=== PATIENT | male | born 1990 | race Caucasian/White ===

== ENCOUNTER 2022-04-03 21:07 | Emergency (ER) | payer OTHER ==
[~2022-04-03] VITALS: Ht 175.3 cm; Wt 125.0 kg
[~2022-04-03 21:07] MED LIST: IBUP-2492 PO
[2022-04-03 22:19] VITALS: BP 135/57
== END 2022-04-03 23:19 | disposition home or self-care (01) ==
LOC: EMS 21:21
DX: T75.4XXA Electrocution, initial encounter (principal); F17.210 Nicotine dependence, cigarettes, uncomplicated; F12.90 Cannabis use, unspecified, uncomplicated; Z90.49 Acquired absence of other specified parts of digestive tract; X58.XXXA Exposure to other specified factors, initial encounter; Y93.89 Activity, other specified; Y92.89 Other specified places as the place of occurrence of the external cause; Y99.8 Other external cause status
CPT/HCPCS: 99291; Z7502

== ENCOUNTER 2023-06-26 17:05 | Emergency (ER) | payer OTHER ==
[~2023-06-26] VITALS: Ht 175.3 cm; Wt 104.5 kg
[~2023-06-26 17:05] MED LIST changes: +OLAN5TAB30 PO
[2023-06-26 18:33] VITALS: BP 127/77; PULSE 104; RESP 18; TEMP 98.9
== END 2023-06-26 19:29 | disposition left against medical advice (07) ==
LOC: EMS 17:06
DX: R44.0 Auditory hallucinations (principal); Z53.21 Procedure and treatment not carried out due to patient leaving prior to being seen by health care provider